=== PATIENT | male | born 2000 | race Caucasian/White ===

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

== ENCOUNTER 2022-02-09 13:30 | Emergency (ER) | payer MEDICAID ==
[~2022-02-09] VITALS: Ht 180.3 cm; Wt 59.1 kg
[2022-02-09 13:44] VITALS: BP 139/81
[2022-02-09] MEDS ORDERED: CEPHALEXIN MONOHYDRATE 500 MG CAPSULE PO ONE (15:30)
[2022-02-09] MEDS ORDERED: CIPROFLOXACIN HCL 250 MG TABLET PO ONE (15:30)
[2022-02-09] MEDS ORDERED: PERTUSS(ACELL),DIPH,TET VAC/PF 0.5 ML SYRINGE IM. ONE (15:30)
[2022-02-09] MEDS ORDERED: IBUPROFEN 600 MG TABLET PO ONE (15:45)
[2022-02-09] MEDS ORDERED: CIPR500T10 PO (16:08)
[2022-02-09] MEDS ORDERED: CEPH-558 PO (16:08)
[2022-02-09] MEDS ORDERED: IBUP-2070 PO (16:09)
== END 2022-02-09 16:30 | disposition home or self-care (01) ==
LOC: EDUNIT# 13:30 → EMS 13:34 → EDBD 13:34 → EMS 16:30
DX: S91.332A Puncture wound without foreign body, left foot, initial encounter (principal); W22.8XXA Striking against or struck by other objects, initial encounter; Y93.01 Activity, walking, marching and hiking; Y92.89 Other specified places as the place of occurrence of the external cause; Y99.8 Other external cause status
CPT/HCPCS: 90471; 90715; 99284

== ENCOUNTER 2022-02-12 20:57 | Emergency (ER) | payer MEDICAID ==
[~2022-02-12] VITALS: Ht 180.3 cm; Wt 56.8 kg
[~2022-02-12 20:57] MED LIST: CEPH-558 PO; CIPR500T10 PO; IBUP-2070 PO
[2022-02-12 21:49] VITALS: BP 107/74
== END 2022-02-12 22:55 | disposition left against medical advice (07) ==
LOC: EMS 20:59
DX: Z53.21 Procedure and treatment not carried out due to patient leaving prior to being seen by health care provider (principal)

== ENCOUNTER 2022-05-02 21:30 | Emergency (ER) | payer MEDICAID ==
[~2022-05-02] VITALS: Ht 180.3 cm; Wt 54.5 kg
[~2022-05-02 21:30] MED LIST changes: +IBUP-1492 PO; -IBUP-2070 PO
[2022-05-02 22:09] LABS: APPEARANCE,URINE HAZY (CLEAR); BILIRUBIN,URINE NEGATIVE (NEGATIVE); GLUCOSE, URINE (UA) NEGATIVE (NEGATIVE); KETONES,URINE NEGATIVE (NEGATIVE); LEUKOCYTE ESTERASE ,URINE MODERATE (NEGATIVE); NITRATE,URINE NEGATIVE (NEGATIVE); OCCULT BLOOD,URINE SMALL (NEGATIVE); PROTEIN,URINE 30-70 mg/dL (NEGATIVE); SPECIFIC GRAVITIY, URINE 1.024 (1.003-1.030); UROBILINOGEN,URINE <=1.0 mg/dL (<=1.0)
[2022-05-02 22:11] LABS: BACTERIA,URINE Few /HPF (None Seen); SQUAMOUS EPITHELIAL CELL,UR Rare /LPF (None Seen); WBC,URINE 26-50 /HPF (0-5)
[2022-05-02] MEDS ORDERED: MORPHINE SULFATE 4 MG/ML SYRINGE IM ONE (22:30)
[2022-05-02] MEDS ORDERED: CefTRIAXone SODIUM 500 MG in DEXTROSE 5%-WATER 50 ML IV ONE (22:30)
[2022-05-03] MEDS ORDERED: DOXY100C51 PO (05:03)
[2022-05-03] MEDS ORDERED: TRAM-559 PO (05:04)
[2022-05-03 05:52] VITALS: BP 127/67
== END 2022-05-03 06:13 | disposition home or self-care (01) ==
LOC: EMS 21:34
DX: N45.2 Orchitis (principal); F17.210 Nicotine dependence, cigarettes, uncomplicated; F12.90 Cannabis use, unspecified, uncomplicated
CPT/HCPCS: 99285; 96365; 81001; 87086; 87186; 87491; 87591; 96372; J0696; J2270; J7060

== ENCOUNTER 2023-01-06 21:00 | Emergency (ER) | payer MEDICAID ==
[~2023-01-06] VITALS: Ht 180.3 cm; Wt 28.9 kg
[~2023-01-06 21:00] MED LIST changes: +DOXY100C51 PO; +TRAM-559 PO
[2023-01-07 00:01] VITALS: BP 138/87; PULSE 106; RESP 15; TEMP 98.2
[2023-01-07] MEDS ORDERED: CEPH-558 PO (00:07)
[2023-01-07] MEDS ORDERED: ACET-66 PO (00:07)
[2023-01-07] MEDS ORDERED: CEPHALEXIN MONOHYDRATE 500 MG CAPSULE PO ONE (00:15)
== END 2023-01-07 00:28 | disposition home or self-care (01) ==
LOC: EMS 21:01
DX: H00.014 Hordeolum externum left upper eyelid (principal); F17.210 Nicotine dependence, cigarettes, uncomplicated; F12.90 Cannabis use, unspecified, uncomplicated
CPT/HCPCS: 99283

== ENCOUNTER 2023-05-17 16:25 | Emergency (ER) | payer MEDICAID ==
[~2023-05-17] VITALS: Ht 180.3 cm; Wt 59.1 kg
[~2023-05-17 16:25] MED LIST changes: +ACET-66 PO
[2023-05-17 16:30] VITALS: TEMP 98
[2023-05-17] MEDS ORDERED: IBUPROFEN 600 MG TABLET PO ONE (16:30)
[2023-05-17] MEDS ORDERED: PERTUSS(ACELL),DIPH,TET VAC/PF 0.5 ML SYRINGE IM. ONE (16:30)
[2023-05-17] MEDS ORDERED: LIDOCAINE 1% 10 ML VIAL ID ONE (17:45)
[2023-05-17] MEDS ORDERED: CEPH-558 PO (18:34)
[2023-05-17 18:44] VITALS: BP 126/80; PULSE 89; RESP 20
[2023-05-17] MEDS ORDERED: CEPHALEXIN MONOHYDRATE 500 MG CAPSULE PO ONE (18:45)
[2023-05-17] MEDS ORDERED: BACITRACIN 0.9 GM PACKET OINTMENT TP ONE (18:45)
== END 2023-05-17 18:52 | disposition home or self-care (01) ==
LOC: EMS 16:31
DX: S61.432A Puncture wound without foreign body of left hand, initial encounter (principal); F17.210 Nicotine dependence, cigarettes, uncomplicated; F12.90 Cannabis use, unspecified, uncomplicated
CPT/HCPCS: 99283; 73120; 90715; 90471; 12001; J3490

== ENCOUNTER 2023-10-26 14:35 | Emergency (ER) | payer MEDICAID ==
[~2023-10-26] VITALS: Ht 180.3 cm; Wt 63.6 kg
[~2023-10-26 14:35] MED LIST changes: -ACET-66 PO; -CIPR500T10 PO; -DOXY100C51 PO; -IBUP-1492 PO; -TRAM-559 PO
[2023-10-26] MEDS: MORPHINE SULFATE 4 MG/ML SYRINGE IVP ONE (17:16)
[2023-10-26] MEDS: ONDANSETRON HCL 4 MG/2 ML VIAL IVP ONE (17:16)
[2023-10-26] MEDS ORDERED: IOHEXOL 350 MG/ML 100 ML VIAL ONE (17:29)
[2023-10-26] MEDS ORDERED: SODIUM CHLORIDE 0.9% 100 ML ONE (17:30)
[2023-10-26 17:38] LABS: BASOPHILS % (AUTO) 0.9 % (0.0-2.0); EOSINOPHILS % (AUTO) 3.3 % (1.0-6.0); HEMOGLOBIN 13.5 g/dL (13.5-17.5); LYMPHOCYTES # (AUTO) 3.9 K/uL (1.0-4.8); LYMPHOCYTES % (AUTO) 41.9 % (22.0-44.0); MEAN CORPUSCULAR HGB CONC 33.9 G/dL (31.0-37.0); MEAN CORPUSCULAR VOLUME 86 fL (80-100); MONOCYTES # (AUTO) 0.7 K/uL (0.1-1.0); MONOCYTES % (AUTO) 7.2 % (2.0-9.0); NEUTROPHILS # (AUTO) 4.3 K/uL (1.8-7.7); NEUTROPHILS % (AUTO) 46.7 % (40.0-70.0); PLATELET COUNT (AUTO) 236 K/uL (150-450); RED BLOOD CELL COUNT(AUTO) 4.68 MIL/uL (4.50-5.90); RED CELL DISTRIBUTION WIDTH 13.8 % (11.5-14.5); WHITE BLOOD COUNT (AUTO) 9.3 K/uL (4.5-11.0)
[2023-10-26 17:44] LABS: ANION GAP 7 mmol/L (8-16); CALCIUM, TOTAL 8.8 mg/dL (8.8-10.5); CARBON DIOXIDE 30 mmol/L (22-29); CHLORIDE 107 mmol/L (98-107); CREATININE 1.03 mg/dL (0.60-1.30); GLOMERULAR FILTR. RATE CALC > 60 mL/min (>60); GLUCOSE,RANDOM 99 mg/dL (70-110); POTASSIUM 3.7 mmol/L (3.5-5.1); SODIUM SERUM 144 mmol/L (136-145); UREA NITROGEN, BLOOD 19 mg/dL (7-18)
[2023-10-26 17:49] LABS: ALANINE AMINOTRANSFERASE 19 U/L (12-78); ALBUMIN 3.3 g/dL (3.4-5.0); ALKALINE PHOSPHATASE 55 U/L (46-116); ASPARTATE AMINOTRANSFERASE 13 U/L (15-37); BILIRUBIN,TOTAL 0.3 mg/dL (0.1-1.0); TOTAL PROTEIN, SERUM 6.5 g/dL (6.4-8.2)
[2023-10-26 17:51] LABS: PROTHROMBIN TIME 10.3 SEC (9.4-11.6)
[2023-10-26 20:31] VITALS: BP 128/64; PULSE 76; RESP 16; TEMP 98
[2023-10-26] MEDS ORDERED: CYCL-448 PO (20:33)
[2023-10-26] MEDS ORDERED: IBUP-1492 PO (20:33)
== END 2023-10-26 20:54 | disposition home or self-care (01) ==
LOC: EMS 14:35
DX: M25.552 Pain in left hip (principal); M25.551 Pain in right hip; F17.210 Nicotine dependence, cigarettes, uncomplicated; F12.90 Cannabis use, unspecified, uncomplicated; V09.9XXA Pedestrian injured in unspecified transport accident, initial encounter; Y93.89 Activity, other specified; Y92.89 Other specified places as the place of occurrence of the external cause; Y99.8 Other external cause status
CPT/HCPCS: 99291; 70450; 96374; 96375; 80053; 85025; 85610; 85730; 86850; 86900; 86901; 36415; 71260; 72125; 72128; 72131; 72193; 74160; 93005; J2270; J2405; Q9967; J7050

== ENCOUNTER 2023-10-30 12:29 | Emergency (ER) | payer MEDICAID ==
[~2023-10-30] VITALS: Ht 180.3 cm; Wt 59.0 kg
[~2023-10-30 12:29] MED LIST changes: +CYCL-448 PO; +IBUP-1492 PO
[2023-10-30 12:33] VITALS: BP 128/66; PULSE 108; RESP 18; TEMP 98.1
== END 2023-10-30 14:53 | disposition left against medical advice (07) ==
LOC: EMS 12:31
DX: M25.551 Pain in right hip (principal); Z53.21 Procedure and treatment not carried out due to patient leaving prior to being seen by health care provider

== ENCOUNTER 2023-11-01 03:28 | Emergency (ER) | payer MEDICAID ==
[~2023-11-01] VITALS: Ht 180.3 cm; Wt 61.4 kg
[2023-11-01 03:33] VITALS: TEMP 98.2
[2023-11-01 04:24] VITALS: BP 125/81; PULSE 95; RESP 16
[2023-11-01] MEDS: KETOROLAC TROMETHAMINE 30 MG/ML VIAL IM ONE (05:27)
[2023-11-01] MEDS ORDERED: IBUP-1492 PO (05:39)
== END 2023-11-01 06:27 | disposition home or self-care (01) ==
LOC: EMS 03:28
DX: M25.551 Pain in right hip (principal); F17.210 Nicotine dependence, cigarettes, uncomplicated; F12.90 Cannabis use, unspecified, uncomplicated
CPT/HCPCS: 99284; 73502; 96372; 72170; J1885

== ENCOUNTER 2024-04-09 17:14 | Emergency (ER) | payer MEDICAID ==
[~2024-04-09] VITALS: Ht 175.3 cm; Wt 63.6 kg
[2024-04-09 17:52] VITALS: BP 138/78; PULSE 105; RESP 18; TEMP 98.5; O2SAT 99
[2024-04-09] MEDS: ACETAMINOPHEN 500 MG TABLET PO ONE (20:03)
[2024-04-09] MEDS: IBUPROFEN 600 MG TABLET PO ONE (20:03)
[2024-04-09] MEDS ORDERED: IBUP-1492 PO (21:20)
[2024-04-09] MEDS ORDERED: ACET-2247 PO (21:20)
== END 2024-04-09 22:00 | disposition home or self-care (01) ==
LOC: EMS 17:14
DX: S93.402A Sprain of unspecified ligament of left ankle, initial encounter (principal); F12.90 Cannabis use, unspecified, uncomplicated; F17.210 Nicotine dependence, cigarettes, uncomplicated; W01.0XXA Fall on same level from slipping, tripping and stumbling without subsequent striking against object, initial encounter; Y93.89 Activity, other specified; Y92.89 Other specified places as the place of occurrence of the external cause; Y99.8 Other external cause status
CPT/HCPCS: 99284

== ENCOUNTER 2024-08-11 05:18 | Emergency (ER) | payer MEDICAID ==
[~2024-08-11] VITALS: Ht 180.3 cm; Wt 63.6 kg
[~2024-08-11 05:18] MED LIST changes: +ACET-2247 PO; -CEPH-558 PO; -CYCL-448 PO
[2024-08-11 05:28] VITALS: BP 133/81; PULSE 87; RESP 18; TEMP 97.5; O2SAT 100
[2024-08-11 05:56] LABS: BASOPHILS % (AUTO) 0.5 % (0.0-2.0); EOSINOPHILS % (AUTO) 0.5 % (1.0-6.0); HEMATOCRIT 42.1 % (41-53); HEMOGLOBIN 14.2 g/dL (13.5-17.5); LYMPHOCYTES # (AUTO) 1.9 K/uL (1.0-4.8); LYMPHOCYTES % (AUTO) 16.1 % (22.0-44.0); MEAN CORPUSCULAR HGB CONC 33.7 G/dL (31.0-37.0); MEAN CORPUSCULAR VOLUME 86 fL (80-100); MONOCYTES # (AUTO) 0.8 K/uL (0.1-1.0); MONOCYTES % (AUTO) 6.7 % (2.0-9.0); NEUTROPHILS # (AUTO) 8.8 K/uL (1.8-7.7); NEUTROPHILS % (AUTO) 76.2 % (40.0-70.0); PLATELET COUNT (AUTO) 299 K/uL (150-450); RED CELL DISTRIBUTION WIDTH 13.5 % (11.5-14.5); WHITE BLOOD COUNT (AUTO) 11.5 K/uL (4.5-11.0)
[2024-08-11 06:02] LABS: ANION GAP 4 mmol/L (8-16); CARBON DIOXIDE 32 mmol/L (22-29); CHLORIDE 105 mmol/L (98-107); CREATININE 1.06 mg/dL (0.60-1.30); GLOMERULAR FILTR. RATE CALC > 60 mL/min (>60); GLUCOSE,RANDOM 107 mg/dL (70-110); POTASSIUM 3.8 mmol/L (3.5-5.1); SODIUM SERUM 141 mmol/L (136-145); UREA NITROGEN, BLOOD 21 mg/dL (7-18)
[2024-08-11] MEDS ORDERED: CEPH-558 PO (06:28)
[2024-08-11] MEDS ORDERED: SULF-261 PO (06:28)
[2024-08-11] MEDS: CEPHALEXIN MONOHYDRATE 500 MG CAPSULE PO ONE (06:33)
[2024-08-11] MEDS: SULFAMETHOX/TRIMETH DS 800-160 MG/TABLET PO ONE (06:33)
[2024-08-11] MEDS: PERTUSS(ACELL),DIPH,TET/PF 0.5 ML SYRINGE [ADULT] IM. ONE (06:33)
[2024-08-11] MEDS: BACITRACIN 28 GM OINTMENT TP ONE (06:34)
== END 2024-08-11 06:41 | disposition home or self-care (01) ==
LOC: EMS 05:19
DX: S91.002A Unspecified open wound, left ankle, initial encounter (principal); L03.116 Cellulitis of left lower limb; F12.90 Cannabis use, unspecified, uncomplicated; V18.2XXA Unspecified pedal cyclist injured in noncollision transport accident in nontraffic accident, initial encounter; Y93.89 Activity, other specified; Y92.89 Other specified places as the place of occurrence of the external cause; Y99.8 Other external cause status
CPT/HCPCS: 80048; 85025; 90715; 99284

== ENCOUNTER 2024-08-14 21:18 | Emergency (ER) | payer MEDICAID ==
[~2024-08-14] VITALS: Ht 175.3 cm; Wt 72.7 kg
[~2024-08-14 21:18] MED LIST changes: +CEPH-558 PO; +SULF-261 PO
[2024-08-14 21:32] VITALS: TEMP 98.1
[2024-08-14 21:52] VITALS: BP 146/97; PULSE 111; RESP 15; O2SAT 100
[2024-08-14] MEDS: SULFAMETHOX/TRIMETH DS 800-160 MG/TABLET PO ONE (22:50)
[2024-08-14] MEDS: CEPHALEXIN MONOHYDRATE 500 MG CAPSULE PO ONE (22:50)
== END 2024-08-14 23:28 ==
LOC: EMS 21:18
DX: L03.116 Cellulitis of left lower limb (principal); Z02.89 Encounter for other administrative examinations; I10 Essential (primary) hypertension; F12.90 Cannabis use, unspecified, uncomplicated; F17.210 Nicotine dependence, cigarettes, uncomplicated
CPT/HCPCS: 99283

== ENCOUNTER 2024-09-25 22:52 | Emergency (ER) | payer MEDICAID ==
[~2024-09-25] VITALS: Ht 167.6 cm; Wt 61.4 kg
[2024-09-25] MEDS ORDERED: SODIUM CHLORIDE 0.9% 100 ML ONE (23:53)
[2024-09-25] MEDS ORDERED: IOHEXOL 350 MG/ML 100 ML VIAL ONE (23:53)
[2024-09-25 23:59] VITALS: TEMP 98
[2024-09-26 00:09] LABS: BASOPHILS % (AUTO) 0.1 % (0.0-2.0); EOSINOPHILS % (AUTO) 0.5 % (1.0-6.0); HEMATOCRIT 46.2 % (41-53); HEMOGLOBIN 15.6 g/dL (13.5-17.5); LYMPHOCYTES # (AUTO) 1.5 K/uL (1.0-4.8); MEAN CORPUSCULAR HEMOGLOBIN 28.6 pg (26.0-34.0); MEAN CORPUSCULAR HGB CONC 33.8 G/dL (31.0-37.0); MEAN CORPUSCULAR VOLUME 85 fL (80-100); MONOCYTES # (AUTO) 0.8 K/uL (0.1-1.0); MONOCYTES % (AUTO) 6.1 % (2.0-9.0); NEUTROPHILS % (AUTO) 81.3 % (40.0-70.0); PLATELET COUNT (AUTO) 316 K/uL (150-450); RED BLOOD CELL COUNT(AUTO) 5.45 MIL/uL (4.50-5.90); RED CELL DISTRIBUTION WIDTH 14.5 % (11.5-14.5); WHITE BLOOD COUNT (AUTO) 12.3 K/uL (4.5-11.0)
[2024-09-26 00:10] LABS: ANION GAP 4 mmol/L (8-16); CALCIUM, TOTAL 8.8 mg/dL (8.8-10.5); CARBON DIOXIDE 31 mmol/L (22-29); CHLORIDE 100 mmol/L (98-107); CREATININE 0.85 mg/dL (0.60-1.30); GLOMERULAR FILTR. RATE CALC > 60 mL/min (>60); GLUCOSE,RANDOM 128 mg/dL (70-110); LIPASE 19 U/L (16-77); POTASSIUM 3.6 mmol/L (3.5-5.1); SODIUM SERUM 135 mmol/L (136-145); UREA NITROGEN, BLOOD 23 mg/dL (7-18)
[2024-09-26 00:19] LABS: LACTIC ACID 1.5 mmol/L (0.4-2.0)
[2024-09-26] MEDS: MORPHINE SULFATE 4 MG/ML SYRINGE IVP ONE (00:28)
[2024-09-26] MEDS: IOHEXOL 9 MG/ML 500 ML BOTTLE PO ONE (00:28)
[2024-09-26] MEDS: ONDANSETRON HCL 4 MG/2 ML VIAL IVP ONE (00:28)
[2024-09-26] MEDS: SODIUM CHLORIDE 0.9% 2,000 ML IV ONE (00:29)
[2024-09-26] MEDS: DIPHENOXYLATE/ATROP 2.5-0.025 MG TABLET PO ONE (01:19)
[2024-09-26 03:40] VITALS: BP 119/72; PULSE 83; RESP 18; O2SAT 98
[2024-09-26] MEDS ORDERED: ONDA-104 PO (04:36)
[2024-09-26] MEDS ORDERED: DIPH-1130 PO (04:36)
[2024-09-26] MEDS ORDERED: ACET-66 PO (04:36)
== END 2024-09-26 05:19 | disposition home or self-care (01) ==
LOC: EMS 22:53
DX: K52.9 Noninfective gastroenteritis and colitis, unspecified (principal); R10.84 Generalized abdominal pain; Z79.899 Other long term (current) drug therapy
CPT/HCPCS: 99285; 74177; 80048; 83605; 83690; 85025; 36415; 96374; 96375; Q9967 ×2; J7050; J2270; J2405; J7030; 96361